=== PATIENT | male | born 1985 | race Caucasian/White ===

== ENCOUNTER 2018-11-02 04:15 | Emergency (ER) | payer OTHER ==
[~2018-11-02] VITALS: Ht 185.4 cm; Wt 145.6 kg
[~2018-11-02 04:15] MED LIST: CIPR500T4 PO; LOM2.5 PO; ONDA4TAB PO
[2018-11-02 04:25] VITALS: BP 141/90
--- NOTE | 2018-11-02 04:25 | NUR ---
PT TAKEN TO BED 7
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
[2018-11-02] MEDS ORDERED: HYDROcodone/APAP 5/325 MG 1 TAB TAB PO ONE (04:40)
[2018-11-02] MEDS ORDERED: KETOROLAC 30 MG/ML VIAL IM ONE (04:40)
[2018-11-02 05:15] VITALS: BP 127/85
--- NOTE | 2018-11-02 05:15 | NUR ---
Patient discharged with v/s stable. Written and verbal after care instructions given and explained. Patient alert, oriented and verbalized understanding of instructions. Ambulatory with steady gait. All questions addressed prior to discharge. ID band removed. Patient advised to follow up with PMD. Rx of [place] and Ibuprofen given. Patient educated on indication of medication including possible reaction and side effects. Opportunity to ask questions provided and answered.
== END 2018-11-02 05:15 | disposition home or self-care (01) ==
LOC: MED 04:15
DX: G89.29 Other chronic pain (principal); M54.5 Low back pain; Z79.899 Other long term (current) drug therapy; Z79.2 Long term (current) use of antibiotics
CPT/HCPCS: 96372; 99283; J1885